=== PATIENT | female | born 1975 | race Caucasian/White ===

== ENCOUNTER 2021-03-07 09:44 | Emergency (ER) | payer OTHER, MEDICAID, SELFPAY ==
[2021-03-07 09:58] VITALS: BP 155/113; PULSE 136; RESP 16; TEMP 37.4; O2SAT 97
--- NOTE | 2021-03-07 10:48 | ED.URI ---
HPI - URI/Sore Throat General Chief Complaint: Upper Respiratory Infection Stated Complaint: sore throat aches headache fever Source: patient and RN notes reviewed Mode of arrival: ambulatory History of Present Illness HPI Narrative: This is a 46-year-old female who presented to urgent care with complaints of a sore throat as she describes as a burning sensation, and slight shortness of breath headache, postnasal dripping, body aches, low-grade fever and a nonproductive cough with chest congestion. According to patient she has been exposed to strep in [place]. She notes that she started developing symptoms the day after [place] after a gathering. The patient denies , CP, palpitation, extremity numbness, lightheadedness, dizziness, constipation, diarrhea, chills, or fever. Related Data Allergies Allergy/AdvReac Type Severity Reaction Status Date / Time Sulfa (Sulfonamide Allergy Unknown Unknown Verified 03/07/21 10:33 Antibiotics) Review of Systems Review of Systems: A 14 organ system Review of Systems was performed and pertinent positives included in the HPI, otherwise remaining ROS is negative. [facility] Family History Family History (Updated 03/07/21 @ 10:49 by LEONIDES ConnellP-C) Other Family history non-contributory Exam Narrative: GENERAL: This is a well-nourished, well-developed patient, in no apparent distress. HEAD: normocephalic, atraumatic. EYES: PERRL. Sclera clear/white. Vision is grossly intact. EARS: External ears normal, auditory canals clear and without drainage, TMs normal without perforation. Hearing grossly intact. NOSE: External nose normal with no obvious nasal discharge, nares without redness, no rhinorrhea. THROAT: Mucous membranes moist, posterior pharynx with erythema. NECK: Neck supple, non-tender without lymphadenopathy, masses or thyromegaly. CARDIOVASCULAR: Regular rate and rhythm without murmurs, gallops, or rubs. RESPIRATORY: Clear to auscultation. Breath sounds equal bilaterally. No wheezes, rales, or rhonchi. GASTROINTESTINAL: Abdomen soft, non-tender, nondistended. Bowel sounds are active. No hepato-splenomegaly, or palpable masses. No guarding. SKIN: warm, intact with no suspicious lesions or rash, good texture and turgor. NEURO: awake, alert, and oriented to person, place and time. There were no obvious focal neurologic abnormalities. Steady gait EXTREMITIES: Normal range of motion. No edema. No calf tenderness. Negative Homans sign bilaterally. BACK: Nontender without deformity or crepitance. No flank tenderness. Course Course Emergency Course: Patient will discharge home with albuterol, Tessalon Perles, guaifenesin, Flonase Vital Signs Vital signs: Vital Signs Temperature 99.4 F 03/07/21 09:58 Pulse Rate 136 H 03/07/21 09:58 Respiratory Rate 16 03/07/21 09:58 Blood Pressure 155/113 H 03/07/21 09:58 Pulse Oximetry 97 03/07/21 09:58 Temperature 99.4 F 03/07/21 09:58 Pulse Rate 136 H 03/07/21 09:58 Respiratory Rate 16 03/07/21 09:58 Blood Pressure 155/113 H 03/07/21 09:58 Pulse Oximetry 97 03/07/21 09:58 MDM - URI/Sore Throat Differential Diagnosis Differential diagnosis: Likely upper respiratory infection, viral infection and pharyngitis Lab Data Labs: Strep Screen Presumptive Negative *(Reference Range: Negative)* Discharge Plan Discharge Clinical Impression: Viral infection Patient Disposition: Home, Self-Care Condition: Stable Instructions: Antibiotic Form, Viral Syndrome (ED) Additional Instructions: This is likely viral illness, no antibiotic is needed at this time. Treatment is aimed toward your specific symptoms. You must treat your symptoms in order to feel better while the virus runs it's course. Recommend antihistamine such as Benadryl at night time and Claritin/Zyrtec/Tamara during the day Use inhaler as needed for cough, wheezing, shortness of breat
== END 2021-03-07 11:05 | disposition home or self-care (01) ==
PROVIDERS: Emergency Provider Nurse Practitioner
DX: B34.9 Viral infection, unspecified (principal); Z20.822 Contact with and (suspected) exposure to COVID-19
CPT/HCPCS: 87081; 87880; 99203; G0463

== ENCOUNTER → 2021-03-08 09:01 | Outpatient (CLI) | payer OTHER, MEDICAID, SELFPAY ==
[2021-03-09 03:59] LABS: SARS-CoV-2 RNA PCR Positive
== END ==
PROVIDERS: Visit Provider Nurse Practitioner
DX: U07.1 COVID-19 (principal)
CPT/HCPCS: C9803; U0003; U0005